=== PATIENT | female | born 1970 | race Hispanic/Latino ===

== ENCOUNTER 2025-05-16 21:16 | Emergency (ER) | payer SELFPAY ==
[2025-05-16] MEDS ORDERED: Boostrix 0.5 ML (Tdap) VIAL (>/=7 yrs of age) ONE (21:47)
[2025-05-16] MEDS ORDERED: Amoxicillin/Potassium Clav 875 MG TAB ONE (21:47)
[2025-05-16] MEDS ORDERED: HYDROcodone/Acetaminophen 5/325 mg Tablet ONE (21:47)
[2025-05-16] MEDS ORDERED: Lidocaine 1% PF 5 ML VIAL ONE (21:47)
[2025-05-16] MEDS ORDERED: Ibuprofen 200 MG TAB ONE (22:45)
== END 2025-05-16 22:22 | disposition home or self-care (01) ==
LOC: CSHERS 21:16
DX: S60.472A Other superficial bite of right middle finger, initial encounter (principal); F17.210 Nicotine dependence, cigarettes, uncomplicated; Z23 Encounter for immunization; W54.0XXA Bitten by dog, initial encounter
CPT/HCPCS: 12001; 90471; 90715

== ENCOUNTER 2025-06-02 15:19 | Emergency (ER) | payer SELFPAY ==
[2025-06-02] MEDS ORDERED: Lidocaine/Transparent Dressing 1 EACH KIT ONE (15:29)
[2025-06-02 16:32] LABS: #Basophils 0.06 10x3/uL (0.0-0.2); #Eosinophils 0.28 10x3/uL (0.0-0.5); #Monocytes 0.57 10x3/uL (0.0-1.1); #Neutrophils 4.00 10x3/uL (1.5-8.4); %Basophils 0.8 % (0.0-2.0); %Eosinophils 3.8 % (0.0-6.0); %Lymphocytes 33.3 % (18.0-47.0); %Monocytes 7.7 % (0.0-10.0); %Neutrophils 54.1 % (40.0-75.0); Hematocrit 40.3 % (34.9-44.5); Hemoglobin 13.5 g/dL (12.0-15.5); Mean Corpuscular Hemoglobin 31.9 pg (27.0-33.0); Mean Corpuscular Volume 95.3 fL (81.6-98.3); Platelet Count 360 10x3/uL (150-450); Red Blood Cell (RBC) Count 4.23 10x6/uL (3.90-5.03); White Blood Cell (WBC) Count 7.39 10x3/uL (3.5-10.5)
[2025-06-02 16:58] LABS: ALT (SGPT) 64 U/L (Less than 34); AST (SGOT) 56 U/L (11-34); Albumin 3.8 g/dL (3.1-4.5); Alkaline Phosphatase 88 U/L (40-110); Anion Gap 17 mmol/L (10-20); BUN (Urea Nitrogen) 8 mg/dL (9.8-20.1); Bilirubin, Total 0.2 mg/dL (0.3-1.2); Calc. Creatinine Clearance 0 mL/min (70-130); Calcium 9.1 mg/dL (7.8-10.44); Carbon Dioxide 19 mmol/L (22-29); Chloride 107 mmol/L (98-107); Globulin 3.1 g/dL (2.4-3.5); Glucose 88 mg/dL (70-105); Potassium 3.9 mmol/L (3.5-5.1); Sodium 139 mmol/L (136-145)
== END 2025-06-02 17:57 | disposition home or self-care (01) ==
LOC: CSHERS 15:19
DX: S61.212D Laceration without foreign body of right middle finger without damage to nail, subsequent encounter (principal); L08.9 Local infection of the skin and subcutaneous tissue, unspecified; E03.9 Hypothyroidism, unspecified; F17.210 Nicotine dependence, cigarettes, uncomplicated; Z55.6 Problems related to health literacy; Z79.890 Hormone replacement therapy; W54.0XXD Bitten by dog, subsequent encounter
CPT/HCPCS: 80053; 85025; 86140